=== PATIENT | female | born 1935 | race Caucasian/White ===

== ENCOUNTER 2025-01-11 07:34 | Inpatient (IN) | payer OTHER, SELFPAY ==
[2025-01-09] VITALS (9 sets, daily range): BP systolic 124–157; BP diastolic 64–82; BMI 19.1
[2025-01-09 13:56] LABS: Hematocrit 36.1 % (37.0-47.0); Hemoglobin 12.3 g/dL (12.0-16.0); Mean Corp Hgb Conc. 34.1 g/dL (33.0-37.0); Mean Corpuscular Volume 89.4 fL (81.0-99.0); Nucleated Red Blood Cells % 0 %; Platelet Count 333 10^3/uL (130-400); Red Cell Dist. Width 13.2 % (11.5-14.5)
[2025-01-09 14:17] LABS: ALT (SGPT) 23 U/L (0-35); AST (SGOT) 31 U/L (14-36); Albumin 4.1 g/dl (3.5-5.0); Alkaline Phosphatase 68 U/L (38-126); Blood Urea Nitrogen 30 mg/dl (7-17); Calcium 9.7 mg/dl (8.4-10.2); Carbon Dioxide 21 mmol/L (22-30); Chloride 108 mmol/L (98-107); Glucose 110 mg/dl (70-99); Potassium 4.3 mmol/L (3.5-5.1); Sodium 138 mmol/L (135-145); Total Protein 7.4 g/dl (6.3-8.2); eGFR 53.85
[2025-01-09] MEDS: NSS 1000 IV (17:18)
[2025-01-09 17:30] LABS: Urine Character Cloudy (Clear)
[2025-01-09 17:50] LABS: Urine Red Blood Cell 0-2 /HPF (0-2); Urine Squamous Cell 0-2 /LPF (Few)
[2025-01-09] MEDS: ROCEPHIN 1000 MG IV (19:07)
--- NOTE | 2025-01-09 20:00 | HPS.HSE ---
Family Physician
-
Family Physician: PHYSICIAN PRIVATE
Chief Complaint
-
urinary frequency
History of Present Illness
Patient is a 89-year-old female with past medical history significant for anxiety/depression, hypertension and hyperlipidemia who presented to [facility] ED for evaluation of urinary frequency. Patient reports she is in from [place] visiting her children
when they requested she come for evaluation for increased urinary frequency. Patient denies any dysuria, hematuria, nausea, vomiting, abdominal pain, constipation or diarrhea.
Medical History
Past Medical History
Past Medical History: Reports Other
Additional Past Medical History:
anxiety/depression
hypertension
hyperlipidemia
Past Surgical History: Reports Other
Additional Past Surgical History:
TAVR
Social History
Alcohol: None
Drug: None
Personal:
Living: Alone
Family History
Family History: Not pertinent
Allergies / Home Medications
Allergies reflects when Allergies were last updated in [email or web address].
Home Medications with original date entered in [email or web address]
Allergy/Medication List:
Allergies
Allergy/AdvReac Type Severity Reaction Status Date / Time
No Known Drug Allergies Allergy Unknown Verified 01/09/25 13:37
seasonal Allergy Intermediate Unknown Uncoded 01/09/25 13:37
Home Medications
Fosamax 70 mg PO WEEKLY 01/07/08
Lisinopril 20 mg PO DAILY 01/07/08
Loratadine 10 mg PO DAILY 01/07/08
Simvastatin 40 mg PO DAILY 01/07/08
Xanax 0.025 mg PO PRN 01/07/08
alprazolam 0.25 mg tablet 0.25 mg PO DAILYPRN PRN anxiety 01/09/25
amlodipine 2.5 mg tablet 2.5 mg PO DAILY 01/09/25
atorvastatin 40 mg tablet 40 mg PO DAILY 01/09/25
Review of Systems
-
History Source: Patient
Constitutional: Reports No Symptoms
EENT: Reports No Symptoms
Respiratory: Reports No Symptoms
Cardiac: Reports No Symptoms
Abdomen/GI: Reports No Symptoms; Denies Abdominal Pain, Nausea, Vomiting, Diarrhea, Constipated or Pain
: Reports Frequency; Denies Dysuria, Flank Pain, Incontinence, Difficulty Voiding or Urgency
Musculoskeletal: Reports No Symptoms
Skin: Reports No Symptoms
Neurological: Reports No Symptoms
Endocrine: Reports No Symptoms
Hematologic/Lymphatic: Reports No Symptoms
Psych: Reports No Symptoms
Physical Exam
Vital Signs
Vital Signs
Temp Pulse Resp BP Pulse Ox
98.6 F 78 17 149/75 96
01/09/25 13:34 01/09/25 19:15 01/09/25 19:15 01/09/25 19:00 01/09/25 19:15
Physical Exam
General: Well Developed, Well Nourished, No Apparent Distress, Comfortable and Conversant
HEENT: NormoCephalic, Moist mucous membranes and Atraumatic
Respiratory: Clear and Non Labored Respirations
Cardiac: S1/S2 and Regular Rhythm
Breast: Deferred by me
GI: Soft, Non Tender, Non Distended and Normal Bowel Sounds
Rectal: Deferred by Provider
Genito-urinary: Deferred by me
Musculoskeletal: No Clubbing, No Cyanosis and No Edema
Skin: Warm and IV/Catheter Site
Neuro: Awake, AO x 3 and Nonfocal/grossly intact
Psych: Calm and Intact Judgment/Insight
Laboratory Results
-
01/09/25 13:46
01/09/25 13:46
Laboratory Results
Total Bilirubin 0.8 mg/dl (0.2-1.3) 01/09/25 13:46
AST 31 U/L (14-36) 01/09/25 13:46
ALT 23 U/L (0-35) 01/09/25 13:46
Alkaline Phosphatase 68 U/L (38-126) 01/09/25 13:46
Data Reviewed
-
CT Scan: Report Reviewed by me (Abd/Pel; There is intrahepatic and extrahepatic biliary duct dilation with a 4 mm stone in the distal common bile duct. There is mild biliary duct wall thickening and enhancement with adjacent stranding suggestive of
cholangitis. Cholelithiasis with mild dilation of the gallbladder which demonstrat)
Lab Data: Labs Reviewed by me (BUN 30, Creat 1.0, eGFR 53.85)
Impression/Plan
-
IMPRESSION/PLAN:
#urinary frequency likely r/t UTI
BUN 30, Creat 1.0, eGFR 53.85
UA: indicates UTI
Urine cx: pending
Abd/Pel CT: There is intrahepatic and extrahepatic biliary duct dilation with a 4 mm stone in the distal common bile duct. There is mild biliary duct wall thickening and enhancement with adjacent stranding
suggestive of cholangitis.
Cholelithiasis with mild dilation of the gallbladder which demonstrate mild wall thickening suspicious for acute cholecystitis.
No hydronephrosis. No renal calculi.
Severe age-indeterminate compression fracture of the T12 vertebral body with associated 3 mm of retropulsion.
- Admit to med/surg
- IV ceftriaxone
- supportive care
#Evaluation for cholangitis - acute calculus cholecystitis
#cholelithiasis and choledocholithiasis
Abd/Pel CT: There is intrahepatic and extrahepatic biliary duct dilation with a 4 mm stone in the distal common bile duct. There is mild biliary duct wall thickening and enhancement with adjacent stranding
suggestive of cholangitis.
Cholelithiasis with mild dilation of the gallbladder which demonstrate mild wall thickening suspicious for acute cholecystitis.
No hydronephrosis. No renal calculi.
Severe age-indeterminate compression fracture of the T12 vertebral body with associated 3 mm of retropulsion.
LFTs WNL
benign abdomen
- full liquid diet
- advance diet as tolerated
- IV ceftriaxone
- Consult GI
#anxiety/depression
- continue PRN alprazolam
#hypertension
- continue amlodipine
#hyperlipidemia
- continue atorvastatin
*med rec completed by Dr. Baron, patient stated listed given to nurse or EMS, is not available for review, she reports 3 medications daily, call to family unanswered, nursing will ask if family returns*
Code status: full code
DVT prophylaxis: heparin sq
--- NOTE | 2025-01-09 20:02 | W.PN.UPDATE ---
Update Note
Progress Note Update
This note serves as an addendum to the H&P by cable wirer Sammie Gregorio
HPI
89F HX HLD, HTN , Anxiety seen at ER
- usually lives in [place]
- concerned due to por PO , Bowel and bladder incontinence
Relevant VS
Vital Signs
Temp Pulse Resp BP Pulse Ox
98.6 F 78 17 149/75 96
01/09/25 13:34 01/09/25 19:15 01/09/25 19:15 01/09/25 19:00 01/09/25 19:15
PE
Gen: not toxic
HEENT:anicteric
Neck: supple
Lungs: CTA
Cor: RRR S1 s2
Abdomen:�soft and benign
RESOURCE CENTER TEACHER: AAO3 NFND
MS: no edema
Psych: Nl mood and affect
Relevant Data
01/09/25
13:46
WBC 4.4 L
Hgb 12.3
Plt Count 333
Sodium 138
Potassium 4.3
Chloride 108 H
Carbon Dioxide 21 L
BUN 30 H
Creatinine 1.0
eGFR 53.85
AST 31
ALT 23
Alkaline Phosphatase 68
Lipase Pending
01/09/25
17:21
Urine Clarity Cloudy
Urine Nitrite (Reflex) Negative
Urine RBC 0-2
Urine WBC (Reflex) 11-15 A
Urine Bacteria (Reflex) Many A
CT AP Without Iv Or Oral
- Intrahepatic and extrahepatic biliary duct dilation with a 4 mm stone in the distal common bile duct.
- There is mild biliary duct wall thickening and enhancement with adjacent stranding suggestive of cholangitis.
- Cholelithiasis with mild dilation of the gallbladder which demonstrate mild wall thickening suspicious for acute cholecystitis.
- No hydronephrosis. No renal calculi.
- Severe age-indeterminate compression fracture of the T12 vertebral body with associated 3 mm of retropulsion.
NO PRIOR hospitalist admission:
ASSESSMENT & PLAN
Pending Rx reconciliation
Evaluation for cholangitis - acute calculus cholecystitis.
-distal CBD 4 mm stone
- cholelithiasis and choledocholithiasis
- mild dilation of the GB plus mild GBWT
- IHD and EHD biliary duct dilation
- nl LFTs and no pain - unlikely cholangitis
- serial abdo exam
- f/u T curve, WCC and LFTs
- Full liquid diet - ADAT
- IV CFTZ for UTI would emetically cover biliary tract pathogen
- GI consulted
Abn UA suggestive of UTI
- f/u UCx
- Empiric IV CFTZ
Benign HTN
- normotensive
- c/w Lisinopril
eGFR 53 - CKD3a ?
- IVF and trend Cr
HLKD
- on Simvastatin
Xanax dependent PRN Anxiety
DVT Px: SQH
Full code
OBS MS
--- NOTE | 2025-01-09 20:09 | ED.GENMED ---
History of Present Illness
General
Chief Complaint: Failure to Thrive
Source: patient and family
Exam Limitations: none
Time Seen by Provider: 01/09/25 16:06
Nursing documentation reviewed up to this point in time: agreed with
History of Present Illness
History of Present Illness:
see MDM
Past History
Past History
ED Past Medical History: HTN, Hypercholesterolemia and Psychiatric
ED Past Surgical History: Appendectomy
Social History
Tobacco: Non-smoker
Phy Exam
Physical Exam
Physical Exam:
see below
Course
Orders/Labs/Results
Orders:
Orders
01/09/25 13:46
Complete Blood Count/With Diff Urgent
Comprehensive Metabolic Panel Urgent
Lipase Urgent
Comment: ADD ON
01/09/25 16:59
CT Abd/pel Without Iv Or Oral Urgent
Comment:
Reason For Exam: UTI, WEAK, NOT EATING; EVAL STONE
Bladder Scan- Treatment ONCE
Straight cath- Treatment ONCE
0.9% Sodium Chloride 1000 ml [Nss] 1,000 ml IV BOLUS
01/09/25 17:21
Urinalysis Reflex To Culture Urgent
Date Specimen was Collected: 01/09/25
Time Specimen was Collected: 17:18
Urine Microscopic Reflex Cult Urgent
Urine Culture Urgent
MARYAM Source: U
Specimen Description:
Date Specimen was Collected: 01/09/25
Time Specimen was Collected: 17:18
01/09/25 18:31
CefTRIAXone [Rocephin] 1,000 mg IV NOW STA
01/09/25 19:45
Add On- LAB Urgent
Tests Added?: lipase
MetroNIDAZOLE 500 MG/100 ML [Flagyl 500 mg] 100 ml IV NOW
Abnormal Lab Results
01/09/25 01/09/25
13:46 17:21
WBC 4.4 L 10^3/uL
(4.8-10.8)
RBC 4.04 L 10^6/uL
(4.20-5.40)
Hct 36.1 L %
(37.0-47.0)
Absolute Lymphs (auto) 1.0 L 10^3/uL
(1.2-3.4)
Absolute Monos (auto) 0.8 H 10^3/uL
(0.1-0.6)
Monocytes % 18.2 H %
(1.7-9.3)
Chloride 108 H mmol/L
(98-107)
Carbon Dioxide 21 L mmol/L
(22-30)
BUN 30 H mg/dl
(7-17)
Glucose 110 H mg/dl
(70-99)
Urine Ketones 1+ A
(Negative)
Ur Occult Blood Reflex 3+ A
(Negative)
Urine Urobilinogen 3+ A
(Neg - 1+)
Leukocyte Esterase Rfl 1+ A
(Negative)
Urine WBC (Reflex) 11-15 A /HPF
(0-5)
Urine Bacteria (Reflex) Many A
(Negative)
Urine Albumin (Reflex) 2+ A
(Neg - Trace)
01/09/25 13:46
01/09/25 13:46
Vital Signs
Initial and Last Documented VS:
Initial Vital Signs
Temp Pulse Resp BP Pulse Ox
37.0 C 99 16 128/81 97
01/09/25 13:34 01/09/25 13:34 01/09/25 13:34 01/09/25 13:34 01/09/25 13:34
Last Documented Vital Signs
Temp Pulse Resp BP Pulse Ox
37.0 C 83 15 155/73 96
01/09/25 13:34 01/09/25 20:00 01/09/25 20:00 01/09/25 20:00 01/09/25 20:13
MDM/Problems Addressed
Differential Diagnosis Includes:
see MDM
MDM/Problems Addressed:
Note:
CHIEF COMPLAINT(S)
Weakness, decreased oral intake, and increased urinary frequency.
HISTORY OF PRESENT ILLNESS
The patient is an 89-year-old female h/o HTN, hld, anxiety; from [place]
who presented with generalized weakness, reduced eating, diminished fluid intake/appetite and increased visits to the bathroom since traveling from [place] to visit family 9 days ago. The symptoms began exacerbating following a recent plane journey.
The patient reports no fever and denies any significant confusion that persists beyond brief nocturnal disturbances. There is no abdominal pain, although she mentions needing, but being unable to rise, to use the restroom which has resulted in
incontinence. She feels aware of the need to void but lacks the strength to do so independently.
The patient rarely had urinary tract infections with mild previous urinary findings noted in October, for which she was treated with an antibiotic, though the specific medication is unknown. She expresses increased weakness, necessitating the use of a
walker instead of a cane, which she was using prior to recent events.
no headache, cp, sob, back pain,vomiting, diarrhea
PAST MEDICAL AND SURIGICAL HISTORY
The patient had a mild urinary finding in October that necessitated treatment with an antibiotic. Regular medications mentioned include citalopram for depression.
SOCIAL DETERMINANTS AFFECTING HEALTH
The patient came from [place] to visit family and plans an indefinite stay. The family describes regular visits without a predetermined duration.
MEDICATIONS
Currently taking citalopram for depression. Past treatment included unspecified antibiotics for a urinary finding in October.
PHYSICAL EXAM
- GENERAL: Alert , mildly anxious
EYE: pupils equal and reactive
NECK: Supple
ENT: o/p clr, slightly dry mouth
CARDIAC: Regular rate and rhythm .
LUNGS: Clear breath sounds bilaterally, no acute respiratory distress, no wheezes/rales/rhonchi
ABDOMEN: Soft, no right upper quadrant tenderness without focal tenderness, no r/g, no cvat, normal bowel sounds
NEUROLOGICAL: Alert and oriented, no focal neuro deficits
SKIN: Warm and dry, skin intact.
MUSCULOSKELETAL: No edema, well perfused. neg soraida's sign
PSYCH: Normal and appropriate interaction.
nursing notes reviewed and vital signs reviewed.
PLAN
A bladder scan is planned to evaluate for urinary retention, followed by a possible sterile catheterization to obtain a urine sample for laboratory analysis. The patient is instructed to inform the staff if she feels the need to urinate.
DIFFERENTIAL DIAGNOSIS
The Differential Diagnosis includes, in no particular order and is not limited to:
1. Urinary tract infection
2. Urinary retention
3. Dehydration
4. Electrolyte imbalance
5. Malnutrition
6. Constipation
7. Medication side effects
8. Depression-related anorexia
9. Anemia
10. Sensorimotor polyneuropathy
CARE-UPDATE
01/09/25 - 19:34
The patient is experiencing a urinary tract infection, evidenced by leukocytes and blood in the urine. Antibiotics have been ordered and possibly already administered. A reassessment via tests is underway to rule out other conditions like a kidney
stone. If the CT scan results are normal, the patient could potentially be discharged with oral antibiotics, given stable vital signs and improved hydration status. However, its crucial that the patient has the strength to move and maintain basic
activity levels. The patient may be discharged home provided they can manage self-care and continue eating and drinking adequately to prevent kidney complications. Additionally, relocation to a more active living environment is planned, which could
facilitate recovery. Further assessment of physical readiness for discharge will occur once test results are confirmed.
2000 - ct findings don't exacty correlate clinically
pt has cholelithiasis on ct and possible choledocholithaisis/cholangitis
but LFTs normal
no fever
no jaundice
no tenderness
d/w famiy
will admit for IV abx, added flagyl and GI was consulted as well
she also agrees that cliniclaly this seems like UTI
pt agreeable to admission
*Pulse Oximetry
SaO2: 96
Oxygen Mode of Delivery: Room air
Patient hypoxic: no (97)
*Critical Care Note
Total Time (30-74mins, 75-104mins- exclusive of procedures): Not Applicable
ED Attending Note
-
Portions of this chart may have been created with voice recognition software.� Occasional wrong word or��sound alike� substitutions may have occurred due to the inherent limitations of voice recognition software.
Discharge Plan
Departure
Patient Disposition: Admit
Date of Disposition: 01/09/25
Time of Disposition: 19:45
Admit to: Med/Surg
Presentation/result/management discussed w/ accepting MD/DO: Hospitalist
Patient with high blood pressure during this ER visit?: No
Condition: Fair
Covid-19: Not Applicable
Discharge Problem:
UTI (urinary tract infection), Weakness, Dehydration
Prescriptions:
No Action
Xanax
0.025 mg PO PRN
Loratadine
10 mg PO DAILY
Fosamax
70 mg PO WEEKLY
Patient Comments:
ON MONDAYS
Lisinopril
20 mg PO DAILY
Simvastatin
40 mg PO DAILY
Referrals:
PRIVATE,PHYSICIAN [Family Provider, Internal Medicine]
Interventions
Interventions:
*Risk Screen - Suicide Last Done: 01/09/25 16:41
*General Assessment Last Done: 01/09/25 16:41
*Neglect/Abuse Screening Last Done: 01/09/25 16:41
*ED COVID-19 Vaccine History Last Done: 01/09/25 16:41
Discharge Date and Time
Print Language: BOTSWANAN
[2025-01-09 20:20] LABS: Lipase 41 U/L (23-300)
[2025-01-09] MEDS: FLAGYL 500 MG 100 IV (20:22)
[2025-01-10] VITALS (15 sets, daily range): BP systolic 110–167; BP diastolic 65–92; BMI 19.1
[2025-01-10] MEDS: HEPARIN 5000 UNITS SC ×2 (00:02→07:11)
[2025-01-10 06:36] LABS: Hematocrit 36.5 % (37.0-47.0); Hemoglobin 12.5 g/dL (12.0-16.0); Mean Corp Hgb Conc. 34.2 g/dL (33.0-37.0); Mean Corpuscular Volume 89.7 fL (81.0-99.0); Platelet Count 300 10^3/uL (130-400); Red Cell Dist. Width 13.2 % (11.5-14.5)
[2025-01-10 06:49] LABS: Blood Urea Nitrogen 23 mg/dl (7-17); Calcium 9.3 mg/dl (8.4-10.2); Carbon Dioxide 26 mmol/L (22-30); Chloride 108 mmol/L (98-107); Estimated Creatinine Clearance 36 ml/min; Glucose 85 mg/dl (70-99); Potassium 3.7 mmol/L (3.5-5.1); Sodium 139 mmol/L (135-145); eGFR > 60.00
--- NOTE | 2025-01-10 07:00 | CON.GI ---
Addendum entered and electronically signed by EMILIANO Wilkinson 01/10/25 09:35:
reviewed with Dr. Tejeda and pharmacy to change abx to Zosyn
Addendum entered and electronically signed by Mikaela Perez DO 01/10/25 09:30:
The patient was seen and examined by me independently in collaboration with the nurse practitioner.
Past medical history/social history/medications/allergies/family history reviewed.
Lab data and imaging data reviewed.
Yaneth Ventura is an 89 y.o. female admitted with dehydration, decreased PO and dysuria found to have UTI and biliary ductal dilation with 4 mm stone in the distal CBD, cholelithiasis and mild dilation of the GB suspicious for acute cholecystitis. LFTs
WNL. She is afebrile and hemodynamically stable. Discussed imaging findings and intervention for choledocholithiasis and cholecystitis with patient, son (Dominic) and daughter (Dania). We also discussed surgical consultation for findings of acute
cholecystitis.
Case also discussed with Dr. Moran. Recommending EUS followed by ERCP, if stone has not passed. Currently on Rocephin for UTI, recommend broadening coverage. Keep NPO
Original Note:
Consultation
-
Date/Time Consultation Requested: 01/09/25 2310
Date/Time Consultation Performed: 01/10/25 0800
Requesting Provider: EMILIANO Rivas
Performing Provider: EMILIANO Olea, Paradise Clement MD
Reason for Consultation: failure to thrive
Medical History
Chief Complaint / HPI
Chief Complaint: decreased appetite
History of Present Illness:
Pt is a 89yo with hx HTN, hyperlipidemia, anxiety/depression, TAVR , UTI with abx in October. On admission noted with WBC 4.4 slight BUN elevation of 30 with otherwise stable chemistry with normal LFT's and lipase. UA with + WBC's and bacteremia. Ct
noted with intrahepatic and extrahepatic biliary duct dilation with a 4 mm stone in the distal common bile duct. There is mild biliary duct wall thickening and enhancement with adjacent stranding suggestive of cholangitis. Cholelithiasis with mild
dilation of the gallbladder which demonstrate mild wall thickening suspicious for acute cholecystitis. No hydronephrosis. No renal calculi. Severe age-indeterminate compression fracture of the T12 vertebral body with associated 3 mm of
retropulsion. Asked to see for abnormal imaging.
In review with patient she admits to decreased appetite for last week or so. with urinary frequency. She denies any GI complaints of odynophagia, dysphagia, GERD, nausea, vomiting, abdominal pain, diarrhea, constipation, or rectal bleeding. She
did not recall EGD in past but hx colonoscopy recalls as stable. Denies NSAID or anticoagulation use in past.
Past Medical History
Past Medical History: HTN, Hypercholesterolemia, Psychiatric (anxiety/depression) and Other (UTI with abx in October )
Past Surgical History: Appendectomy and Cardiac (TAVR)
Social History
Tobacco: Non-Smoker
Alcohol: None
Drug: None
Living: Alone
Employment: Retired
Family History
Family History: Other (denies family hx GI malignancies, pancreatitis or gallbladder problems)
Allergies / Home Medications
Allergy/AdvReac Type Severity Reaction Status Date / Time
No Known Drug Allergies Allergy Unknown Verified 01/09/25 13:37
seasonal Allergy Intermediate Unknown Uncoded 01/09/25 13:37
�Medication �Instructions �Recorded
Fosamax 70 mg PO WEEKLY 01/07/08
Lisinopril 20 mg PO DAILY 01/07/08
Loratadine 10 mg PO DAILY 01/07/08
Simvastatin 40 mg PO DAILY 01/07/08
Xanax 0.025 mg PO PRN 01/07/08
alprazolam 0.25 mg tablet 0.25 mg PO DAILYPRN PRN anxiety 01/09/25
amlodipine 2.5 mg tablet 2.5 mg PO DAILY 01/09/25
atorvastatin 40 mg tablet 40 mg PO DAILY 01/09/25
Review of Systems
-
History Source: Patient
Constitutional: Reports Weight Loss (few lbs ) and Other (decreased appetite )
EENT: Reports No Symptoms
Respiratory: Reports No Symptoms
Cardiac: Reports No Symptoms
Abdomen/GI: Reports No Symptoms
: Reports Frequency
Musculoskeletal: Reports No Symptoms
Skin: Reports No Symptoms
Neurological: Reports Weakness
Endocrine: Reports No Symptoms
Hematologic/Lymphatic: Reports No Symptoms
Vital Signs
Temp Pulse Resp BP Pulse Ox
98.6 F 85 15 160/82 96
01/09/25 13:34 01/10/25 06:30 01/10/25 06:30 01/10/25 06:00 01/10/25 06:30
Physical Exam
Exam
General: Well Developed, Well Nourished and No Apparent Distress
HEENT: Normocephalic and Anicteric
Respiratory: Clear
Cardiac: Regular Rhythm
GI: Soft, Non Tender and Non Distended
Skin: Warm and Dry
Neuro: Awake, Alert and AO x 3
Psych: Calm
Results
WBC 5.4 10^3/uL (4.8-10.8) 01/10/25 05:58
Hgb 12.5 g/dL (12.0-16.0) 01/10/25 05:58
Hct 36.5 % (37.0-47.0) L 01/10/25 05:58
MCV 89.7 fL (81.0-99.0) 01/10/25 05:58
Plt Count 300 10^3/uL (130-400) 01/10/25 05:58
Absolute Neuts (auto) 2.6 10^3/uL (1.4-6.5) 01/09/25 13:46
Sodium 139 mmol/L (135-145) 01/10/25 05:58
Potassium 3.7 mmol/L (3.5-5.1) 01/10/25 05:58
Chloride 108 mmol/L (98-107) H 01/10/25 05:58
Carbon Dioxide 26 mmol/L (22-30) 01/10/25 05:58
BUN 23 mg/dl (7-17) H 01/10/25 05:58
Creatinine 0.8 mg/dL (0.6-1.0) 01/10/25 05:58
Calcium 9.3 mg/dl (8.4-10.2) 01/10/25 05:58
Total Bilirubin 0.8 mg/dl (0.2-1.3) 01/09/25 13:46
AST 31 U/L (14-36) 01/09/25 13:46
ALT 23 U/L (0-35) 01/09/25 13:46
Alkaline Phosphatase 68 U/L (38-126) 01/09/25 13:46
Lipase 41 U/L (23-300) 01/09/25 13:46
Diagnostic Image Results:
01/10/25 CT Abd/pel Without Iv Or Oral
There is intrahepatic and extrahepatic biliary duct dilation with a 4 mm stone in the distal common bile duct. There is mild biliary duct wall thickening and enhancement with adjacent stranding suggestive of cholangitis.
Cholelithiasis with mild dilation of the gallbladder which demonstrate mild wall thickening suspicious for acute cholecystitis.
No hydronephrosis. No renal calculi.
Severe age-indeterminate compression fracture of the T12 vertebral body with associated 3 mm of retropulsion.
Prior GI Procedures:
EGD: none
Colonoscopy: recalls as stable in past
Assessment / Plan
-
Pt is a 89yo with hx HTN, hyperlipidemia, anxiety/depression, TAVR , UTI with abx in October. On admission noted with WBC 4.4 slight BUN elevation of 30 with otherwise stable chemistry with normal LFT's and lipase. UA with + WBC's and bacteremia. Ct
noted with intrahepatic and extrahepatic biliary duct dilation with a 4 mm stone in the distal common bile duct. There is mild biliary duct wall thickening and enhancement with adjacent stranding suggestive of cholangitis. Cholelithiasis with mild
dilation of the gallbladder which demonstrate mild wall thickening suspicious for acute cholecystitis. No hydronephrosis. No renal calculi. Severe age-indeterminate compression fracture of the T12 vertebral body with associated 3 mm of
retropulsion. Asked to see for abnormal imaging. In review with patient she admits to decreased appetite for last week or so. with urinary frequency. She denies any GI complaints. She did not recall EGD in past but hx colonoscopy recalls as
stable. Denies NSAID or anticoagulation use in past.
-wt loss decreased appetite
-abnormal Ct with intra and extrahepatic biliary dilation with 4 mm distal CBD stone
-CT with concern fro cholelithiasis and acute cholecystitis
-concern for possible UTI with prior UTI in October
other med problems:
-HTN
-hyperlipidemia
-anxiety/depression
-TAVR
PLAN:
etiology of symptoms concern for UTI but also abnormal Ct with choledocholithiasis with ductal dilation and cholecystitis without fever, pain, LFT elevation or leukocytosis
Dr. Perez reviewed with Dr. Moran for EUS/ERCP
reviewed with family daughter Krzysztof and son Dominic for option of proceed with EUS/ERCP today -vs no intervention given age and risk of eventual cholangitis/sepsis/ without intervention
also discussed possible surgical eval for desmond
cont NPO
cont abx
hospitalist to treat for possible UTI
family will discuss and let us know decision
will hold heparin and add compression stocking
-
-
Thank you for consultation and allowing me to participate in the patient's care. Please call the pension fund manager GI physician during the after hours with any questions or concerns.
[2025-01-10] MEDS: NORVASC 2.5 MG PO (07:11)
[2025-01-10] MEDS: LIPITOR 40 MG PO (07:11)
[2025-01-10] MEDS: TYLENOL 650 MG PO (09:24)
--- NOTE | 2025-01-10 09:46 | W.PN.UPDATE ---
Update Note
Progress Note Update
Called back to bedside to discuss plan with patient, son jael at bedside. Patient currently refusing any procedures, including EUS, ERCP, choelcystectomy or per desmond. I have explained the risks including, but not limited to, bacteremia, sepsis,
perforation and and she expressed understanding. She is willing to stay for IV antibiotics and transition to PO as outpatient. If her condition worsens, she may be agreeable to some intervention, but at this time, she is not.
Recommend d/c rocephin and change to Zosyn for 48 hours, then transition to Augmentin x 10-14 days on d/c.
--- NOTE | 2025-01-10 09:47 | W.PN.HOSP.TC ---
Today's Communication/Plan
-
Antibiotics for UTI, conservative treatment for now and follow biliary pathology
Assessment / Plan
Assessment / Plan
This is an 89-year-old female with due to increased urinary frequency.
She also endorses some incontinence: She feels a urge to urinate but is unable to do so on her own due to weakness.
History is negative for dysuria, fever, hematuria, nausea, vomiting, abdominal pain, constipation or diarrhea.
She endorses poor appetite/fluid intake, weakness and recent weight loss.
She had a recent urinary tract infection in October for which she was treated with antibiotic.
Her past medical history significant for anxiety/depression, hypertension, hyperlipidemia and TAVR(3yrs ago)
She is not anticoagulated or on ASA.
She recently moved in from [place] with her family medical records in [place].
# Urinary tract infection
-Elderly patient with increased urinary frequency and incontinence.
-Urinalysis suggestive of infection.
-Reflex to culture.
-Has had single dose of Rocephin, antibiotics changed to Zosyn by GI.
-Has received bolus IV fluid normal saline 1L in the ED
# Recent history of anorexia/weight loss anorexia
#CT Evident cholelithiasis, acute cholecystitis, choledocholithiasis, cholangitis
-CBC, CMP, Lipase WNL
-Abdominal pelvic CT
There is intrahepatic and extrahepatic biliary duct dilation with a 4 mm stone in the distal common bile duct` .
There is mild biliary duct wall thickening and enhancement with adjacent stranding suggestive of cholangitis.
Cholelithiasis with mild dilation of the gallbladder which demonstrate mild wall thickening suspicious for acute cholecystitis.
No hydronephrosis. No renal calculi.
Severe age-indeterminate compression fracture of the T12 vertebral body with associated 3 mm of retropulsion.
-GI recommendations noted with thanks
Surgical intervention offered to the patient and her family, they have however opted for conservative management.
IV antibiotics changed to cover GI pathogen.
GI to remain available for consult if the patient changes her mind.
Lift NPO, Low fat diet.
#Essential hypertension
- On Losartan 50mg, Amlodipine 2.5mg
-Monitor bp
#Dehydration
-eGFR (now >60)has improved following fluid resuscitation.
-Creatinine continues to remain within normal limits.
#Hyperlipidemia
-Continue simvastatin
#Anxiety depression
-Continue alprazolam
Code status: full code
DVT prophylaxis: heparin sq
Anticipated Discharge: 24 - 48 hours
Subjective/Interval History
-
Date of Service: January 10, 2025
Objective Data
-
Labs:
Laboratory Results
01/10/25 01/10/25
05:58 09:26
WBC 5.4
Hgb 12.5
Hct 36.5 L
Plt Count 300
PT Pending
INR Pending
Sodium 139
Potassium 3.7
Chloride 108 H
Carbon Dioxide 26
BUN 23 H
Creatinine 0.8
Glucose 85
Calcium 9.3
Vital Signs:
Vital Signs
Temp Pulse Resp BP Pulse Ox
98.0 F 82 13 160/78 95
01/10/25 08:00 01/10/25 08:00 01/10/25 08:00 01/10/25 08:00 01/10/25 07:38
I&O
01/09/25 01/10/25 01/11/25
06:59 06:59 06:59
Output Total 600 / 600
Balance -600 / -600
Review of Systems
-
History Source: Patient and Family (Her son Dominic at the bedside)
Constitutional: Reports Weight Loss and No Appetite; Denies Fever
EENT: Reports No Symptoms Reported
Respiratory: Reports No Symptoms
Cardiac: Reports No Symptoms
Abdomen/GI: Reports Anorexia
Genitourinary: Reports Frequency and Incontinence
Musculoskeletal: Reports No Symptoms
Physical Exam
-
General: Appears Chronically Ill (Appears thin and frail)
HEENT: Normocephalic, Moist Mucous Membranes and Good Dentition (Dentures)
Respiratory: Clear to Auscultation
Cardiac: Regular Rhythm and S1/S2
GI: Soft, Nontender and Nondistended
Musculoskeletal: Edema, Right Lower Extrem and Other (Varicose veins bilaterally in the leg. Some tenderness about the left coats. Peripheral pulses present)
Skin: Warm and Dry
Neuro: Awake, Alert, Oriented and AO x 3
Psych: Anxious
Data Reviewed
-
Labs: Labs Reviewed by me, Discussed with Physician and Discussed with Patient
--- NOTE | 2025-01-10 10:12 | W.PN.UPDATE ---
Update Note
Progress Note Update
I saw and evaluated the patient. I reviewed the resident�s note and agree with findings and plan as documented in the resident�s note.
No new complaints.
Gen: NAD, awake and alert, appears chronically ill malnourished
Eyes: EOMI, PERRLA, no scleral icterus.
Neck: supple.
CV: RRR, +S1/S2, no m/r/g.
Resp: CTAB, no rales, wheezes, or rhonchi.
Abd: +BS, soft, NT, ND
Skin: No rashes.
Neuro: CN 2-12 intact, non-focal.
Psych: Normal mood and affect.
CT A/P: There is intrahepatic and extrahepatic biliary duct dilation with a 4 mm stone in the distal common bile duct. There is mild biliary duct wall thickening and enhancement with adjacent stranding suggestive of cholangitis. Cholelithiasis with
mild dilation of the gallbladder which demonstrate mild wall thickening suspicious for acute cholecystitis. No hydronephrosis. No renal calculi. Severe age-indeterminate compression fracture of the T12 vertebral body with associated 3 mm of
retropulsion.
Acute ascending cholangitis due to acute choledocholithiasis:
-currently patient is refusing all procedures (confirmed with pt and son at bedside). I explained that without removal of the patient's choledocholithiasis that she is at risk for sepsis and . The patient and son verbally acknowledged
understanding of this.
-Afebrile, no leukocytosis, LFTs normal
-change antibiotics to Zosyn
-diet as tolerated
Other problems:
Essential HTN: cont Norvasc
HLD: cont statin
Anxiety: cont Xanax
FULL/heparin
[2025-01-10] MEDS: ZOSYN 50 IV ×3 (10:16→21:51)
--- NOTE | 2025-01-10 10:34 | CM ---
Met with patient and her son, Dominic, at the bedside in the ED
JOHNSON form explained; son signed form @ 1020
Local pharmacy: [facility] @ [address] [place] [address], [place], [place]
Patient's primary residence is in [place], [place], w/ her son, Bobby and nanjiinr-[id number], Mer; currently staying at her son, Dominic's [facility] home in [place]; 2 steps to enter via garage; 12 steps to 2nd floor bathroom to shower only
(walk-in shower w/ shower chair). Patient lives on 1st floor; bedroom and half bath. Railings present on stairs.
PLOF: reported that she is independent w/ personal care; her family assists w/ ADLs; ambulates with cane or rolling walker; reported she can go up the stairs to shower
No SNF utilization history; home health for PT/OT when she was in [place]
Son will transport home
Plan: Discharge to son's [facility] home when medically stable; daughter will also be there to care for her. Case Management will monitor for needs/services
--- NOTE | 2025-01-10 12:16 | W.PN.HOSP.TC ---
Today's Communication/Plan
-
Antibiotics for UTI, conservative treatment for now and follow biliary pathology
Assessment / Plan
Assessment / Plan
This is an 89-year-old female with due to increased urinary frequency.
She also endorses some incontinence: She feels a urge to urinate but is unable to do so on her own due to weakness.
History is negative for dysuria, fever, hematuria, nausea, vomiting, abdominal pain, constipation or diarrhea.
She endorses poor appetite/fluid intake, weakness and recent weight loss.
She had a recent urinary tract infection in October for which she was treated with antibiotic.
Her past medical history significant for anxiety/depression, hypertension, hyperlipidemia and TAVR(3yrs ago)
She is not anticoagulated or on ASA.
She recently moved in from [place] with her family medical records in [place].
# Urinary tract infection
-Elderly patient with increased urinary frequency and incontinence.
-Urinalysis suggestive of infection.
-Reflex to culture.
-Has had single dose of Rocephin, antibiotics changed to Zosyn by GI.
-Has received bolus IV fluid normal saline 1L in the ED
# Recent history of anorexia/weight loss anorexia
#CT Evident cholelithiasis, acute cholecystitis, choledocholithiasis, cholangitis
-CBC, CMP, Lipase WNL
-Abdominal pelvic CT
There is intrahepatic and extrahepatic biliary duct dilation with a 4 mm stone in the distal common bile duct` .
There is mild biliary duct wall thickening and enhancement with adjacent stranding suggestive of cholangitis.
Cholelithiasis with mild dilation of the gallbladder which demonstrate mild wall thickening suspicious for acute cholecystitis.
No hydronephrosis. No renal calculi.
Severe age-indeterminate compression fracture of the T12 vertebral body with associated 3 mm of retropulsion.
-GI recommendations noted with thanks
Surgical intervention offered to the patient and her family, they have however opted for conservative management.
IV antibiotics changed to cover GI pathogen.
GI to remain available for consult if the patient changes her mind.
Lift NPO, Low fat diet.
#Essential hypertension
- On Losartan 50mg, Amlodipine 2.5mg
-Monitor bp
#Dehydration
-eGFR (now >60)has improved following fluid resuscitation.
-Creatinine continues to remain within normal limits.
#Hyperlipidemia
-Continue simvastatin
#Anxiety depression
-Continue alprazolam
Code status: full code
DVT prophylaxis: Enoxaparin
Anticipated Discharge: 24 - 48 hours
Subjective/Interval History
-
Date of Service: January 10, 2025
Objective Data
-
Labs:
Laboratory Results
01/10/25 01/10/25
05:58 09:26
WBC 5.4
Hgb 12.5
Hct 36.5 L
Plt Count 300
PT Pending
INR Pending
Sodium 139
Potassium 3.7
Chloride 108 H
Carbon Dioxide 26
BUN 23 H
Creatinine 0.8
Glucose 85
Calcium 9.3
Vital Signs:
Vital Signs
Temp Pulse Resp BP Pulse Ox
98.0 F 96 18 136/72 95
01/10/25 08:00 01/10/25 11:30 01/10/25 11:30 01/10/25 11:00 01/10/25 10:35
I&O
01/09/25 01/10/25 01/11/25
06:59 06:59 06:59
Output Total 600 / 600
Balance -600 / -600
Review of Systems
-
History Source: Patient and Family (Her son Dominic at the bedside)
Constitutional: Reports Weight Loss and No Appetite; Denies Fever
EENT: Reports No Symptoms Reported
Respiratory: Reports No Symptoms
Cardiac: Reports No Symptoms
Abdomen/GI: Reports Anorexia
Genitourinary: Reports Frequency and Incontinence
Musculoskeletal: Reports No Symptoms
Physical Exam
-
General: Appears Chronically Ill (Appears thin and frail)
HEENT: Normocephalic, Moist Mucous Membranes and Good Dentition (Dentures)
Respiratory: Clear to Auscultation
Cardiac: Regular Rhythm and S1/S2
GI: Soft, Nontender and Nondistended
Musculoskeletal: Edema, Right Lower Extrem and Other (Varicose veins bilaterally in the leg. Some tenderness about the left coats. Peripheral pulses present)
Skin: Warm and Dry
Neuro: Awake, Alert, Oriented and AO x 3
Psych: Anxious
[2025-01-10] MEDS: VITAMIN B-12 1000 MCG PO (12:35)
[2025-01-10] MEDS: VITAMIN D3 (cholecalciferol) 10 MCG PO (12:35)
[2025-01-10] MEDS: CELEXA 20 MG PO (12:35)
[2025-01-10] MEDS: COZAAR 50 MG PO (12:38)
[2025-01-10 14:33] LABS: INR 1.07; PT 14.5 Sec (11.4-14.6)
[2025-01-10] MEDS: LOVENOX 30 MG SC (17:20)
[2025-01-10] MEDS: NON-FORMULARY ITEM INH (22:55)
[2025-01-11] MEDS: ZOSYN 50 IV ×2 (04:00→10:15)
[2025-01-11 06:26] LABS: Hematocrit 34.8 % (37.0-47.0); Hemoglobin 11.9 g/dL (12.0-16.0); Mean Corp Hgb Conc. 34.2 g/dL (33.0-37.0); Mean Corpuscular Volume 89.9 fL (81.0-99.0); Platelet Count 305 10^3/uL (130-400); Red Cell Dist. Width 13.0 % (11.5-14.5)
[2025-01-11 06:48] LABS: ALT (SGPT) 18 U/L (0-35); AST (SGOT) 24 U/L (14-36); Albumin 3.4 g/dl (3.5-5.0); Alkaline Phosphatase 57 U/L (38-126); Blood Urea Nitrogen 24 mg/dl (7-17); Calcium 9.1 mg/dl (8.4-10.2); Carbon Dioxide 26 mmol/L (22-30); Chloride 108 mmol/L (98-107); Estimated Creatinine Clearance 26 ml/min; Glucose 89 mg/dl (70-99); Potassium 4.2 mmol/L (3.5-5.1); Sodium 138 mmol/L (135-145); Total Protein 6.4 g/dl (6.3-8.2); eGFR 48.03
[2025-01-11] MEDS: NON-FORMULARY ITEM 1 UNIT INH (07:15)
--- NOTE | 2025-01-11 07:35 | W.PN.UPDATE ---
Addendum entered and electronically signed by Les Tejeda MD 01/11/25 13:21:
Total time spent on d/c = 31 min. This included today's physical exam, progress note, review of laboratory and diagnostic data, preparation of discharge documents and prescriptions, and discussions about the pt's hospital course and discharge plan
with the patient and other medical insurance collector involved in the patient's care.
Original Note:
Update Note
Progress Note Update
I saw and evaluated the patient. I reviewed the resident�s note and agree with findings and plan as documented in the resident�s note.
Denies abdominal pain. Continues to refuse procedures.
Gen: NAD, awake and alert, appears chronically ill malnourished
Eyes: EOMI, PERRLA, no scleral icterus.
Neck: supple.
CV: Remains RRR, +S1/S2, no m/r/g.
Resp: Remains CTAB, no rales, wheezes, or rhonchi.
Abd: Remains +BS, soft, NT, ND
Skin: No rashes.
Neuro: CN 2-12 intact, non-focal.
Psych: Normal mood and affect.
CT A/P: There is intrahepatic and extrahepatic biliary duct dilation with a 4 mm stone in the distal common bile duct. There is mild biliary duct wall thickening and enhancement with adjacent stranding suggestive of cholangitis. Cholelithiasis with
mild dilation of the gallbladder which demonstrate mild wall thickening suspicious for acute cholecystitis. No hydronephrosis. No renal calculi. Severe age-indeterminate compression fracture of the T12 vertebral body with associated 3 mm of
retropulsion.
Acute ascending cholangitis due to acute choledocholithiasis:
-currently patient is refusing all procedures (confirmed with pt and son at bedside). I explained that without removal of the patient's choledocholithiasis that she is at risk for sepsis and . The patient and son verbally acknowledged
understanding of this.
-Afebrile, no leukocytosis, LFTs normal
-cont Zosyn
-diet as tolerated
-c/s ID
Other problems:
Essential HTN: increase Norvasc to 5mg daily, cont Losartan
HLD: cont statin
Anxiety: cont Xanax
FULL/heparin
Dispo: As the patient is refusing any procedures, likely discharge later today after seen by ID.
[2025-01-11 07:48] VITALS: BP 167/95
--- NOTE | 2025-01-11 07:53 | W.PN.HOSP.TC ---
Today's Communication/Plan
-
Discharge home on PO Abx for conservative management
Assessment / Plan
Assessment / Plan
This is an 89-year-old female with due to increased urinary frequency.
She also endorses some incontinence: She feels a urge to urinate but is unable to do so on her own due to weakness.
History is negative for dysuria, fever, hematuria, nausea, vomiting, abdominal pain, constipation or diarrhea.
She endorses poor appetite/fluid intake, weakness and recent weight loss.
She had a recent urinary tract infection in October for which she was treated with antibiotic.
Her past medical history significant for anxiety/depression, hypertension, hyperlipidemia and TAVR(3yrs ago)
She is not anticoagulated or on ASA.
She recently moved in from [place] with her family medical records in [place].
# Urinary tract infection
-Elderly patient with increased urinary frequency and incontinence.
-Urinalysis suggestive of infection.
-Culture yeilded E coli Aerococcus
-Has had single dose of Rocephin, antibiotics changed to Zosyn by GI.
-IV fluid normal saline 1L bolus in the ED, 60mls at mantainance
# Recent history of anorexia/weight loss anorexia
#CT Evident cholelithiasis, acute cholecystitis, choledocholithiasis, cholangitis
-CBC, CMP, Lipase WNL
-Abdominal pelvic CT
There is intrahepatic and extrahepatic biliary duct dilation with a 4 mm stone in the distal common bile duct` .
There is mild biliary duct wall thickening and enhancement with adjacent stranding suggestive of cholangitis.
Cholelithiasis with mild dilation of the gallbladder which demonstrate mild wall thickening suspicious for acute cholecystitis.
No hydronephrosis. No renal calculi.
Severe age-indeterminate compression fracture of the T12 vertebral body with associated 3 mm of retropulsion.
-GI recommendations noted with thanks
Surgical intervention again offered to patient and son present, again chose conservative management.
Currently clinically stable
Can be discharged home to complete h treatment with PO Abxer
Currently on Zocyn
ID Consult for Abx therapy
#Essential hypertension
- On Losartan 50mg, Amlodipine 2.5mg
- Normotensive post PO anti-hypertensive
-Discharge home on home meds
#Hyperlipidemia
-Continue simvastatin
#Anxiety depression
-Continue alprazolam
Code status: full code
DVT prophylaxis: S/C Heparin
Anticipated Discharge: Today
Subjective/Interval History
-
Date of Service: January 11, 2025
No new complaints
Says she feels stronger
Objective Data
-
Labs:
Laboratory Results
01/11/25
06:06
WBC 5.1
Hgb 11.9 L
Hct 34.8 L
Plt Count 305
Sodium 138
Potassium 4.2
Chloride 108 H
Carbon Dioxide 26
BUN 24 H
Creatinine 1.1 H
Glucose 89
Calcium 9.1
Total Bilirubin 0.6
AST 24
ALT 18
Alkaline Phosphatase 57
Vital Signs:
Vital Signs
Temp Pulse Resp BP Pulse Ox
98.1 F 90 18 167/95 97
01/11/25 07:48 01/11/25 07:48 01/11/25 07:48 01/11/25 07:48 01/11/25 07:48
I&O
01/10/25 01/11/25 01/12/25
06:59 06:59 06:59
Intake Total 980 / 980
Output Total 600 / 600
Balance 380 / 380
Review of Systems
-
History Source: Patient and Family (Her son Dominic at the bedside)
Constitutional: Reports Weight Loss and No Appetite; Denies Fever
EENT: Reports No Symptoms Reported
Respiratory: Reports No Symptoms
Cardiac: Reports No Symptoms
Abdomen/GI: Reports Anorexia
Genitourinary: Reports Frequency and Incontinence
Musculoskeletal: Reports No Symptoms
Physical Exam
-
General: Appears Chronically Ill (Appears thin and frail)
HEENT: Normocephalic, Moist Mucous Membranes and Good Dentition (Dentures)
Respiratory: Clear to Auscultation
Cardiac: Regular Rhythm and S1/S2
GI: Soft, Nontender and Nondistended
Musculoskeletal: Other (Varicose veins bilaterally in the leg. Some tenderness above left (varicose veins) coats. Peripheral pulses present)
Skin: Warm and Dry
Neuro: Awake, Alert, Oriented and AO x 3
Data Reviewed
-
Labs: Labs Reviewed by me, Discussed with Physician and Discussed with Patient
--- NOTE | 2025-01-11 09:19 | CON.ID ---
Addendum entered and electronically signed by Griselda Son MD 01/11/25 12:50:
I personally performed a history and physical exam of the patient and discussed management with the resident. I reviewed the resident's note and agree with most of the documented findings and plan of care HPI/CC.
# Symptomatic UTI
- Ucx 100K E. coli, Aerococcus
- Can transition to Augmentin 500mg po bid.
# Incidental finding of acute cholecystitis with CBD stone, biliary dil
- Pt adamantly refuses ERCP/EUS or perc desmond
- Afebrile, normal LFT's, no abdominal pain
- Currently no active biliary infection. However, very high risk for imminent biliary sepsis/cholangitis.
- Can transition to prophylactic Augmentin 500mg po bid x 14d.
- Discussed with patient and her son regarding red flag warning signs of biliary sepsis and to seek medical care, if present.
Original Note:
Consultation
-
Date/Time Consultation Requested: 01/11/2025 7:56
Date/Time Consultation Performed: 09:00
Requesting Provider: Kiara Colón MD
Performing Provider: Asher Renae MD ; Griselda son MD
Reason for Consultation: UTI
Chief Complaint / Past History
Chief Complaint
Frequent urination and dysuria
History of Present Illness
This is a 89-year-old female with known history of hypertension, hyperlipidemia, anxiety presented on 01/09/2025 with generalized weakness, reduced appetite and frequent urination for the last 8 to 9 days. Denies any fever or chills. Denies any
abdominal pain. She was treated for possible UTI in 11/2024. She cannot recall the name of the antibiotic.
Initial labs with white count of 4.4, BUN of 30 BUN of 30 otherwise normal LFTs and lipase. UA with positive WBCs and bacteremia. CTAbd/Pel CT: There is intrahepatic and extrahepatic biliary duct dilation with a 4 mm stone in the distal common
bile duct. There is mild biliary duct wall thickening and enhancement with adjacent stranding. GI was consulted however patient opted against any intervention at this time. Initially she was on ceftriaxone but was changed to Zosyn on 01/10/2025
She continues to have frequent urination and dysuria however significant improvement since yesterday
Urine culture showed E. coli and Aerococcus species and ID was consulted for further recommendations
Past History
Past Medical History: HTN and Other (Hyperlipidemia, anxiety, history of UTI in 11/2024.)
Past Surgical History: Appendectomy and Cardiac (TAVR)
Allergy History:
No Known Drug Allergies Allergy (Verified 01/09/25 13:37)
Unknown
seasonal Allergy (Intermediate, Uncoded 01/09/25 13:37)
Unknown
Medications Reviewed: Yes
Current Antibiotics:
Zosyn
Social History
Tobacco: Non-Smoker
Alcohol: None
Drug: None
Employment: Retired
Family History
Family History: Not Pertinent
Review of Systems
Review of Systems
General: Negative Fever or Chills
Cardiovascular: Negative Chest Pain
Respiratory: Negative Dyspnea or Cough
Gasteroenterology: Negative Nausea, Vomiting or Diarrhea
Genital / Urological: Dysuria; Negative Hematuria or Flank Pain
Musculoskeletal: Negative Joint Pain
Skin / Hair / Nails: Negative Rash
Neurological: Negative Headache
Vital Signs
Temp Pulse Resp BP Pulse Ox
98.1 F 90 18 167/95 97
01/11/25 07:48 01/11/25 07:48 01/11/25 07:48 01/11/25 07:48 01/11/25 07:48
Physical Exam
Physical Exam
Constitutional: Comfortable and Non-toxic
Cardiovascular: Regular Rate and S1/S2
Pulmonary: Clear and Non Labored
Gastrointestinal: Soft, Non Tender and Non Distended
Genito-Urinary: Negative CVA Tenderness
Extremities: Edema
Skin: Warm and Dry
Neurological: Awake, Alert and Oriented
Psychological: Calm
Lab / Diagnostic Study Results
01/11/25 06:06
01/11/25 06:06
Abs Immat Gran (auto) 0.0 10^3/uL (0-0.05) 01/09/25 13:46
Absolute Neuts (auto) 2.6 10^3/uL (1.4-6.5) 01/09/25 13:46
Absolute Lymphs (auto) 1.0 10^3/uL (1.2-3.4) L 01/09/25 13:46
Absolute Monos (auto) 0.8 10^3/uL (0.1-0.6) H 01/09/25 13:46
Absolute Basos (auto) 0.0 10^3/uL (0-0.2) 01/09/25 13:46
Immature Gran % 0.2 % (0-0.5) 01/09/25 13:46
Neutrophils % 58.6 % (42.2-75.2) 01/09/25 13:46
Lymphocytes % 21.6 % (20.5-51.1) 01/09/25 13:46
Monocytes % 18.2 % (1.7-9.3) H 01/09/25 13:46
Eosinophils % 0.9 % (0-6) 01/09/25 13:46
Basophils % 0.5 % (0-2) 01/09/25 13:46
PT 14.5 Sec (11.4-14.6) 01/10/25 14:03
INR 1.07 01/10/25 14:03
Ur Squamous Epith Cells 0-2 /LPF (Few) 01/09/25 17:21
Microbiology Results
Micro:
01/09/25 17:21 Urine Culture - Final
Urine Escherichia coli
Aerococcus Species
CT Abd/pel Without Iv Or Oral: 01/09/2025
There is intrahepatic and extrahepatic biliary duct dilation with a 4 mm stone in the distal common bile duct. There is mild biliary duct wall thickening and enhancement with adjacent stranding suggestive of cholangitis.
Cholelithiasis with mild dilation of the gallbladder which demonstrate mild wall thickening suspicious for acute cholecystitis.
No hydronephrosis. No renal calculi.
Severe age-indeterminate compression fracture of the T12 vertebral body with associated 3 mm of retropulsion.
Assessment / Plan
# Urinary tract infection(dysuria and frequent urination)
# Choledocholithiasis with CBD dilation; refusing any GI intervention at this time
- Afebrile with normal white count
- UA with 3+ occult blood, +eukocyte esterase, positive WBC, many bacteria
- Urine culture with E. coli and Aerococcus patient
- Currently on Zosyn; transition to augmentin; 500/125 bid given her current kidney functions. continue through 01/24/2024( to complete total 14 days)
- Discussed that she can develop sepsis with cholangitis and and reviewed the return precautions; do not recommend prolonged preventative abx for gallbladder. She agree with the plan and understands risks and voices understanding of current medical
condition
Conditions prior to arrival:
Essential hypertension
Hyperlipidemia
Anxiety
Plan discussed at length with patient, son(Dominic) and daughter on phone call(Dania). Patient plans to go back to [place]
[2025-01-11] MEDS: NORVASC 2.5 MG PO (10:14)
[2025-01-11] MEDS: LIPITOR 40 MG PO (10:14)
[2025-01-11] MEDS: VITAMIN B-12 1000 MCG PO (10:14)
[2025-01-11] MEDS: VITAMIN D3 (cholecalciferol) 10 MCG PO (10:14)
[2025-01-11] MEDS: CELEXA 20 MG PO (10:14)
[2025-01-11] MEDS: HEPARIN 5000 UNITS SC (10:15)
[2025-01-11] MEDS: COZAAR 50 MG PO (10:15)
--- NOTE | 2025-01-11 10:42 | CM ---
Addendum entered by Philly Malcolm 01/11/25 15:52:
discharge today
spoke with son Dominic will be transporting home today
PLAN: Son's home in [place], no needs
Original Note:
Patient seen at bedside
tt from UR LOC change to inpatient
IMM explained & signed. In chart
PT/OT to eval
PLAN: Discharge to son's [place]'s home when medically stable; daughter will also be there to care for her. CM will monitor for needs/services
[2025-01-11 12:33] VITALS: BP 112/72
--- NOTE | 2025-01-11 16:16 | W.DCSUMMARY ---
Discharge Summary
Discharge Data
Date of Admission: 01/11/25
Date of Discharge: 01/11/25
-
Pending Results: No
Hospital Course
Discharging Physician : Sharmin Colón MD. Les Tejeda MD
Disposition : Home
Primary care physician : Dr Aguilera
Principal Discharge diagnosis :
Symptomatic urinary tract infection
Cholelithiasis with acute Cholecystitis and Choledocholithiasis
Dehydration
Chronic Discharge diagnosis :
Hypertensive disease
Hyperlipidemia
Chronic obstructive pulmonary disease
Transaortic valve replacement
Anxiety depression
Hospital Course :
This is an 89-year-old female who presented to [facility] on 01/09/2025 with due to increased urinary frequency.
She also endorsed weakness and some incontinence: She feels a urge to urinate but is unable to do so on her own due to weakness.
She endorses poor appetite/fluid intake, and recent weight loss.
She had a recent urinary tract infection in October for which she was treated with antibiotic.
Her past medical history significant for anxiety/depression, hypertension, hyperlipidemia and TAVR(3yrs ago)
Present on presentation at the ED, she appeared mildly dehydrated, tachycardic with a heart rate of [address] done showed stones in the gallbladder and common bile duct with inflammation of the gallbladder.
She was subsequently admitted and placed on n.p.o. and IV antibiotics.
She was consulted by the gastroenterology and was offered surgical management of her gallbladder pathology however opted for conservative management despite counseling.
Antibiotic management was optimized by Infectious disease and was discharged home on oral medications.
She was counseled on symptoms to watch out for for acute cholecystitis/cholangitis and to follow-up with her primary care provider on an outpatient basis
Important imaging findings :
CT Abd/pel Without Iv Or Oral (01/09/2025)
There is intrahepatic and extrahepatic biliary duct dilation with a 4 mm stone in the distal common bile duct. There is mild biliary duct wall thickening and enhancement with adjacent stranding suggestive of cholangitis.
Cholelithiasis with mild dilation of the gallbladder which demonstrate mild wall thickening suspicious for acute cholecystitis.
No hydronephrosis. No renal calculi.
Severe age-indeterminate compression fracture of the T12 vertebral body with associated 3 mm of retropulsion.
Discharge Plan
-
Patient Disposition: Home (Routine Discharge)
Discharge Diagnosis/Procedures: Symptomatic urinary tract infection
Cholelithiasis with acute Cholecystitis and Choledocholithiasis
Dehydration
Condition: Fair
Diet: Low Fat
Activity: As tolerated
Driving Restrictions: As prior to admission
Bathing Restrictions: None
Referrals:
PRIVATE,PHYSICIAN [Family Provider, Internal Medicine]
Additional Discharge Medication Instructions: Please take Augmentin twice daily for 14 days ( Finish on 01/25/25).
If severe abdominal pain develops, please let your PCP know or come back to the ER as the anti-biotics may not have adequately treated the ascending cholangitis as discussed in detail during your hospital stay.
Prescriptions:
New
amoxicillin-pot clavulanate 500-125 mg Tablet
1 tab PO Q12 14 Days Qty: 28 0RF
Continued
atorvastatin 40 mg tablet
40 mg PO DAILY
amlodipine 2.5 mg tablet
2.5 mg PO DAILY
alprazolam 0.25 mg tablet
0.25 mg PO DAILYPRN PRN (Reason: anxiety)
losartan 50 mg Tablet
50 mg PO DAILY
acetaminophen [Tylenol] 325 mg Tablet
650 mg PO Q6HPRN PRN (Reason: mild pain)
citalopram [Celexa] 40 mg Tablet
40 mg PO DAILY
cyanocobalamin (vitamin B-12) 1,000 mcg Tablet
1,000 mcg PO DAILY
therapeutic multivitamin Tablet
1 tab PO DAILY
cholecalciferol (vitamin D3) [Vitamin D3] 10 mcg (400 unit) Tablet
10 mcg PO DAILY
Trelegy Ellipta 100-62.5-25 mcg Blister With Device
1 inh INHALATION R DAILY
Discharge Orders:
Discharge Patient (As Directed); Ordered 01/11/25
Ordered By: Les Tejeda
Discharge Date and Time
Discharge Date/Time: 01/11/25 16:23
Print Language: MACEDONIAN
[2025-01-11 16:20] VITALS: BP 116/79
== END 2025-01-11 16:23 | disposition home or self-care (01) | DRG 690 ==
LOC: 3 WEST ACU 07:34
PROVIDERS: Emergency Medicine; Nurse Practitioner Adult Health; Nurse Practitioner Family; Physician Assistant; ADMITTING PHYSICIAN Internal Medicine; ATTENDING PHYSICIAN Internal Medicine; CONSULT PHYSICIAN Internal Medicine Infectious Disease; EMERGENCY PHYSICIAN Emergency Medicine; OTHER PHYSICIAN Internal Medicine
DX: N39.0 Urinary tract infection, site not specified (principal); K80.62 Calculus of gallbladder and bile duct with acute cholecystitis without obstruction; M48.54XA Collapsed vertebra, not elsewhere classified, thoracic region, initial encounter for fracture; E86.0 Dehydration; I10 Essential (primary) hypertension; E78.00 Pure hypercholesterolemia, unspecified; R32 Unspecified urinary incontinence; F41.9 Anxiety disorder, unspecified; F32.A Depression, unspecified; B96.20 Unspecified Escherichia coli [E. coli] as the cause of diseases classified elsewhere; R62.7 Adult failure to thrive; Z79.83 Long term (current) use of bisphosphonates; Z87.440 Personal history of urinary (tract) infections; Z79.899 Other long term (current) drug therapy
CPT/HCPCS: 74176; 80048; 80053; 81003; 81015; 83690; 85025; 85027; 85610; 87077; 87086; 87186; 94640